=== PATIENT | female | born 1970 | race Caucasian/White ===

== ENCOUNTER 2021-10-27 10:27 | Outpatient (CLI) | payer OTHER, SELFPAY ==
[2021-10-27 12:10] LABS: SARS PCR* Negative SARS-CoV-2 (Negative)
== END 2021-10-27 10:28 | disposition home or self-care (01) ==
LOC: NFLDREF 10:28
PROVIDERS: PCP Family Medicine; Visit Provider Surgery
DX: Z20.822 Contact with and (suspected) exposure to COVID-19 (principal); Z01.818 Encounter for other preprocedural examination
CPT/HCPCS: 87635

== ENCOUNTER 2021-10-30 07:27 | Outpatient (CLI) | payer OTHER, SELFPAY | END 2021-10-30 07:28 | disposition home or self-care (01) | LOC: OP CLINIC 07:28 | PROVIDERS: PCP Family Medicine; Visit Provider Surgery | DX: Z12.11 Encounter for screening for malignant neoplasm of colon (principal); K63.5 Polyp of colon; K62.1 Rectal polyp | CPT/HCPCS: 45385; 88305; 99153; J2250; J2405; J3010 ==

== ENCOUNTER 2022-08-08 09:11 | Outpatient (CLI) | payer OTHER, SELFPAY | END 2022-08-08 09:12 | disposition home or self-care (01) | LOC: NFLDREF 08-10 14:32 | PROVIDERS: PCP Family Medicine; Referring Provider Family Medicine; Visit Provider Family Medicine | DX: Z01.419 Encounter for gynecological examination (general) (routine) without abnormal findings (principal); E66.3 Overweight; E78.5 Hyperlipidemia, unspecified; E06.3 Autoimmune thyroiditis; E55.9 Vitamin D deficiency, unspecified; E53.8 Deficiency of other specified B group vitamins | CPT/HCPCS: 80053; 80061; 82607; 84443 ==

== ENCOUNTER 2022-10-02 14:37 | Outpatient (CLI) | payer OTHER, SELFPAY ==
--- NOTE | 2022-10-02 15:00 | CRLHL7_ITS ---
For Patients: As a result of the Century Cures Act, medical imaging exams and procedure reports are released immediately into your electronic medical record. You may view this report before your referring provider. If you have questions, please contact your health care provider. BILATERAL SCREENING MAMMOGRAM WITH COMPUTER-AIDED DETECTION AND TOMOSYNTHESIS TECHNIQUE: CC and MLO views were obtained. These mammographic images have been obtained using full-field digital technique. These mammographic images were interpreted with the benefit of computer-aided detection. Breast Tomosynthesis was used in this interpretation. COMPARISON FILM: 07/05/21, 05/17/20, 05/08/19. FINDINGS: The breasts are almost entirely fatty IMPRESSION: There is no radiographic evidence for malignancy. ASSESSMENT: BI-RADS Category 1: Negative RECOMMENDATION: Routine screening mammogram in 1 year. A lay language report of this examination will be provided to the patient. Dell Schwarz M.D. Diagnostic/Nuclear Medicine Radiologist [email or web address] LINETTE/Dictated by: Dell Schwarz MD @ 10/03/2022 9:06:00 AM (Electronically Signed)
== END 2022-10-02 14:38 | disposition home or self-care (01) ==
LOC: MAMMO 14:38
PROVIDERS: PCP Family Medicine; Visit Provider Family Medicine
DX: Z12.31 Encounter for screening mammogram for malignant neoplasm of breast (principal)
CPT/HCPCS: 77063; 77067